=== PATIENT | female | born 1970 | race Caucasian/White ===

== ENCOUNTER 2018-10-05 20:04 | Emergency (ER) | payer OTHER ==
[~2018-10-05] VITALS: Ht 165.1 cm; Wt 117.9 kg
[2018-10-05] MEDS ORDERED: ZANTAC 150MG T150 MG PO (21:07)
[2018-10-05] MEDS ORDERED: ALLEGRA ALLERG180 MG PO (21:07)
[2018-10-05] MEDS ORDERED: PROTONIX 20 MG20 M1 PO (21:07)
[2018-10-06] MEDS ORDERED: MOBIC15 MG PO (01:27)
[2018-10-06] MEDS ORDERED: PERCOCET PO (01:44)
[2018-10-06 02:00] VITALS: BP 126/83
== END 2018-10-06 02:52 | disposition home or self-care (01) ==
LOC: ER 20:04
DX: S39.012A Strain of muscle, fascia and tendon of lower back, initial encounter (principal); M54.2 Cervicalgia; K21.9 Gastro-esophageal reflux disease without esophagitis; G89.29 Other chronic pain; F17.210 Nicotine dependence, cigarettes, uncomplicated; Z88.8 Allergy status to other drugs, medicaments and biological substances; V49.49XA Driver injured in collision with other motor vehicles in traffic accident, initial encounter; Y93.89 Activity, other specified; Y92.89 Other specified places as the place of occurrence of the external cause; Y99.8 Other external cause status